=== PATIENT | female | born 1995 | race African-American/Black ===

== ENCOUNTER 2018-06-12 10:14 | Inpatient (IN) ==
[2018-06-12 11:25] LABS: Apearance,Urine Slightly Hazy (Clear); Bilirubin,Urine Negative (Negative); Blood, Urine Negative (Negative); Glucose,Urine (UA) Negative (Negative); Ketones,Urine 80 mg/dL (Negative); Mucus,Urine Moderate /LPF (Occasional); Nitrite,Urine Negative (Negative); Protein,Urine 100 MG/DL; RBC,Urine 7 /HPF (0-4); Urine Color Yellow (Yellow); Urine Specific Gravity 1.028 (1.001-1.035); WBC,Urine 100 /HPF (0-6)
[2018-06-12] MEDS ORDERED: MEPERIDINE 50 MG/1 ML VIAL IV PRN (12:59)
[2018-06-12] MEDS ORDERED: ONDANSETRON 4 MG/2 ML VIAL IV PRN (12:59)
[2018-06-12] MEDS: LACTATED RINGERS 1,000 ML IV SCH (13:47)
[2018-06-12] MEDS ORDERED: BUTORPHANOL 2 MG/ML VIAL IV PRN (16:55)
[2018-06-12] MEDS ORDERED: LACTATED RINGERS 250 ML IV ONE (16:55)
[2018-06-12] MEDS ORDERED: OXYTOCIN/LR 20 UNIT/1,000 ML BAG IV SCH (17:00)
[2018-06-12] MEDS ORDERED: CITRIC ACID/SODIUM CITRATE 30 ML UDCUP PO ONE (17:09)
[2018-06-12] MEDS ORDERED: FAMOTIDINE 20 MG/2 ML VIAL IV ONE (17:09)
[2018-06-12] MEDS ORDERED: LACTATED RINGERS 1,000 ML IV ONE (17:09)
[2018-06-12] MEDS ORDERED: hydrOXYzine HCL 25 MG/1 ML VIAL IM PRN (17:12)
[2018-06-12] MEDS ORDERED: ePHEDrine 50 MG/ML AMP IV PRN (17:12)
[2018-06-12] MEDS ORDERED: diphenhydrAMINE 50 MG/1 ML VIAL IV PRN ×2 (17:12)
[2018-06-12] MEDS ORDERED: NALOXONE 0.4 MG/ML VIAL IV PRN (17:12)
[2018-06-12] MEDS ORDERED: PROMETHAZINE 25 MG/1 ML VIAL IM ONE (17:12)
[2018-06-12 17:19] LABS: Basophils % 0.1 % (0.0-0.8); Hematocrit 40.3 VOL% (35.7-47.0); Hemoglobin 12.9 GM/DL (12.0-16.0); Immature Granulocytes % 0.6 %; Immature Granulocytes Absolute 0.06 #; Lymphocytes # 1.4 10*3/uL (1.4-4.0); Lymphocytes % 13.3 % (21.3-54.2); Mean Corpuscular Hemoglobin 26 PG (27-34); Mean Corpuscular Volume 80.8 FL (87-102); Mean Platelet Volume 12.5 FL (9.6-12.0); Monocytes # 0.5 10*3/uL (0.11-0.8); Monocytes % 5.2 % (1.7-12.7); Neutrophils # 8.5 10*3/uL (1.4-7.4); Neutrophils % 80.8 % (38.7-73.9); Platelet Count 197 T/CUMM (130-400); Red Blood Count 4.99 MC/CUMM (3.8-5.5); Red Cell Distribution Width 15.1 % (9.3-17.3); White Blood Count 10.5 T/CUMM (4-12)
[2018-06-12 17:48] LABS: Albumin 2.6 G/DL (3.4-5.0); Bilirubin,Total 0.4 MG/DL (0.2-1.0); Osmolality,Calculated 277.4 MOS/KG (273-304); Potassium 3.8 MMOL/L (3.5-5.1); Total Protein 7.2 G/DL (6.4-8.3)
[2018-06-13] MEDS ORDERED: OXYTOCIN/LR 30 UNIT/1,000 ML BAG IV ONE (00:11)
[2018-06-13 03:56] LABS: Cord Arterial Blood HCO3 14.4 MMOL/L
[2018-06-13 03:58] LABS: Cord Venous Blood HCO3 15.8 MMOL/L; Cord Venous Blood PCO2 67.3 MMHG; Cord Venous Blood PO2 13.9
[2018-06-13] MEDS ORDERED: BENZOCAINE 20%/MENTHOL 0.5% SPRAY 56 GM CAN TOP PRN ×2 (04:57→06:16)
[2018-06-13] MEDS ORDERED: IBUPROFEN 800 MG TABLET PO PRN (04:59)
[2018-06-13] MEDS ORDERED: ONDANSETRON 4 MG/2 ML VIAL IV PRN (06:16)
[2018-06-13] MEDS ORDERED: ACETAMINOPHEN 325 MG TABLET PO PRN (06:16)
[2018-06-13] MEDS ORDERED: MEASLES/MUMPS/RUBELLA VACCINE 0.5 ML VIAL SUBCUT ONE (06:16)
[2018-06-13] MEDS ORDERED: LANOLIN 50% CREAM 0.3 OZ TUBE TOP PRN (06:16)
[2018-06-13] MEDS ORDERED: BISACODYL 10 MG SUPP RECTAL PRN (06:16)
[2018-06-13] MEDS ORDERED: RHO(D) IMMUNE GLOBULIN 300 MCG SYRINGE IM ONE (06:16)
[2018-06-13] MEDS ORDERED: oxyCODONE/ACETAMINOPHEN 5-325 MG TABLET PO PRN (06:16)
[2018-06-13] MEDS ORDERED: OXYTOCIN/LR 20 UNIT/1,000 ML BAG IV ONE (06:16)
[2018-06-13] MEDS ORDERED: WITCH HAZEL PADS 100/JAR TOP PRN (06:16)
[2018-06-13] MEDS ORDERED: DIPH/TET/ACEL PERT BOOSTER VACCINE 0.5 ML VIAL IM ONE (06:16)
[2018-06-13] MEDS ORDERED: HYDROCORTISONE 2.5% RECTAL CREAM 30 GM TUBE TOP PRN (06:16)
[2018-06-13] MEDS: DOCUSATE SODIUM 100 MG CAPSULE PO SCH ×2 (09:41→20:41)
[2018-06-13] MEDS: IBUPROFEN 800 MG TABLET PO PRN (15:52)
[2018-06-13] MEDS: fentaNYL 2 MCG/ROPIV 0.2% EPID 100 ML EPIDURAL SCH (20:19)
[2018-06-13] MEDS: LACTATED RINGERS 1,000 ML IV SCH (20:20)
[2018-06-14] MEDS: IBUPROFEN 800 MG TABLET PO PRN ×2 (01:03→11:30)
[2018-06-14] MEDS: oxyCODONE/ACETAMINOPHEN 5-325 MG TABLET PO PRN (01:04)
[2018-06-14 04:21] LABS: Basophils % 0.2 % (0.0-0.8); Eosinophils # 0.1 10*3/uL (0.0-0.87); Eosinophils % 1.1 % (0.00-10.9); Hematocrit 28.7 VOL% (35.7-47.0); Hemoglobin 9.5 GM/DL (12.0-16.0); Immature Granulocytes % 0.5 %; Immature Granulocytes Absolute 0.05 #; Lymphocytes # 2.4 10*3/uL (1.4-4.0); Lymphocytes % 23.4 % (21.3-54.2); Mean Corpuscular HGB Conc 33.1 GM/DL (32-36); Mean Corpuscular Hemoglobin 26 PG (27-34); Mean Corpuscular Volume 79.3 FL (87-102); Mean Platelet Volume 12.7 FL (9.6-12.0); Monocytes # 0.8 10*3/uL (0.11-0.8); Neutrophils # 6.7 10*3/uL (1.4-7.4); Neutrophils % 66.8 % (38.7-73.9); Platelet Count 139 T/CUMM (130-400); Red Blood Count 3.62 MC/CUMM (3.8-5.5); Red Cell Distribution Width 15.1 % (9.3-17.3)
[2018-06-14] MEDS: DOCUSATE SODIUM 100 MG CAPSULE PO SCH ×2 (09:26→20:04)
[2018-06-15] MEDS: oxyCODONE/ACETAMINOPHEN 5-325 MG TABLET PO PRN ×2 (00:02→06:35)
[2018-06-15] MEDS ORDERED: MAGNESIUM HYDROXIDE SUSP 30 ML UDCUP PO PRN (09:28)
[2018-06-15] MEDS: DOCUSATE SODIUM 100 MG CAPSULE PO SCH (09:50)
[2018-06-15] MEDS ORDERED: diphenhydrAMINE 50 MG/1 ML VIAL IM ONE (10:03)
[2018-06-15] MEDS ORDERED: ACETAMINOPHEN/CODEINE 300-30 MG TABLET PO PRN (11:44)
[2018-06-15 14:36] VITALS: BP 150/88
== END 2018-06-15 15:30 | disposition home or self-care (01) | DRG 560 ==
LOC: N.LDOUT 10:14 → N.LD 10:16 → N.OB 06-13 07:15
PROVIDERS: ADMIT Obstetrics & Gynecology; ATTEND Obstetrics & Gynecology

== ENCOUNTER 2020-07-30 23:37 | Inpatient (IN) ==
[2020-07-31] MEDS ORDERED: MEPERIDINE 50 MG/1 ML VIAL IV PRN (00:22)
[2020-07-31] MEDS ORDERED: ONDANSETRON 4 MG/2 ML VIAL IV PRN (00:22)
[2020-07-31] MEDS ORDERED: LACTATED RINGERS 1,000 ML IV SCH (00:30)
[2020-07-31] MEDS ORDERED: miSOPROStoL 100 MCG TABLET VAG ONE (01:00)
[2020-07-31 01:14] LABS: Basophils % 0.1 % (0.0-0.8); Eosinophils % 0.5 % (0.00-10.9); Hematocrit 36.5 VOL% (35.7-47.0); Hemoglobin 11.2 GM/DL (12.0-16.0); Immature Granulocytes % 0.6 %; Immature Granulocytes Absolute 0.05 #; Lymphocytes % 23.9 % (21.3-54.2); Mean Corpuscular HGB Conc 30.7 GM/DL (32-36); Mean Corpuscular Volume 75.4 FL (87-102); Mean Platelet Volume 12.1 FL (9.6-12.0); Monocytes % 7.6 % (1.7-12.7); NRBC # 0.06 10*3/uL; Neutrophils % 67.3 % (38.7-73.9); Platelet Count 208 T/CUMM (130-400); Red Blood Count 4.84 MC/CUMM (3.8-5.5); Red Cell Distribution Width 19.5 % (9.3-17.3); White Blood Count 8.5 T/CUMM (4-12)
[2020-07-31 01:29] LABS: Albumin 2.2 G/DL (3.4-5.0); Bilirubin,Total 0.4 MG/DL (0.2-1.0); Calcium 8.8 MG/DL (8.5-10.1); Osmolality,Calculated 273.5 MOS/KG (273-304); Total Protein 6.7 G/DL (6.4-8.3)
[2020-07-31] MEDS ORDERED: miSOPROStoL 100 MCG TABLET VAG SCH (09:02)
[2020-07-31] MEDS ORDERED: FAMOTIDINE 20 MG/2 ML VIAL IV ONE (09:15)
[2020-07-31] MEDS ORDERED: CITRIC ACID/SODIUM CITRATE 30 ML UDCUP PO ONE (09:15)
[2020-07-31] MEDS ORDERED: LACTATED RINGERS 1,000 ML IV ONE (09:15)
[2020-07-31] MEDS ORDERED: ePHEDrine 50 MG/ML VIAL IV PRN (09:15)
[2020-07-31] MEDS ORDERED: hydrOXYzine HCL 25 MG/1 ML VIAL IM PRN (09:16)
[2020-07-31] MEDS ORDERED: diphenhydrAMINE 50 MG/1 ML VIAL IV PRN ×2 (09:16)
[2020-07-31] MEDS ORDERED: PROMETHAZINE 25 MG/1 ML VIAL IM ONE (09:16)
[2020-07-31] MEDS ORDERED: NALOXONE 0.4 MG/ML VIAL IV PRN (09:16)
[2020-07-31] MEDS ORDERED: fentaNYL 2 MCG/ROPIV 0.2% EPID 100 ML EPIDURAL SCH (09:30)
[2020-07-31] MEDS ORDERED: OXYTOCIN/LR 20 UNIT/1,000 ML BAG IV SCH (10:00)
[2020-07-31] MEDS ORDERED: miSOPROStoL 200 MCG TABLET ONE (12:01)
[2020-07-31] MEDS ORDERED: CARBOPROST TROMETHAMINE 250 MCG/ML AMP IM ONE (12:01)
[2020-07-31] MEDS ORDERED: METHYLERGONOVINE 0.2 MG/1 ML AMP ONE (12:01)
[2020-07-31 14:14] LABS: Cord Arterial Blood HCO3 15.9 MMOL/L
[2020-07-31 14:15] LABS: Cord Venous Blood HCO3 18.1 MMOL/L; Cord Venous Blood PCO2 52.7 MMHG; Cord Venous Blood PO2 22.4
[2020-07-31] MEDS ORDERED: WITCH HAZEL PADS 100/JAR TOP PRN ×2 (15:43→17:58)
[2020-07-31] MEDS ORDERED: RHO(D) IMMUNE GLOBULIN 300 MCG SYRINGE IM ONE ×2 (15:43→17:58)
[2020-07-31] MEDS ORDERED: OXYTOCIN/LR 20 UNIT/1,000 ML BAG IV ONE ×2 (15:43→17:58)
[2020-07-31] MEDS ORDERED: BENZOCAINE 20%/MENTHOL 0.5% SPRAY 56 GM CAN TOP PRN ×2 (15:43→17:58)
[2020-07-31] MEDS ORDERED: HYDROCORTISONE 2.5% RECTAL CREAM 30 GM TUBE TOP PRN ×2 (15:43→17:58)
[2020-07-31] MEDS ORDERED: LANOLIN 50% CREAM 0.3 OZ TUBE TOP PRN ×2 (15:43→17:58)
[2020-07-31] MEDS ORDERED: DIPH/TET/ACEL PERT BOOSTER VACCINE 0.5 ML VIAL IM ONE (15:43)
[2020-07-31] MEDS ORDERED: IBUPROFEN 800 MG TABLET PO PRN (15:43)
[2020-07-31] MEDS ORDERED: MEASLES/MUMPS/RUBELLA VACCINE 0.5 ML VIAL SUBCUT ONE (15:43)
[2020-07-31] MEDS ORDERED: ACETAMINOPHEN 325 MG TABLET PO PRN ×2 (15:43→17:58)
[2020-07-31] MEDS ORDERED: BISACODYL 10 MG SUPP RECTAL PRN ×2 (15:43→17:58)
[2020-07-31] MEDS ORDERED: ACETAMINOPHEN/CODEINE 300-30 MG TABLET PO ONE (16:03)
[2020-07-31] MEDS ORDERED: hydrALAZINE 25 MG TABLET PO ONE (17:10)
[2020-07-31] MEDS ORDERED: ACETAMINOPHEN/CODEINE 300-30 MG TABLET PO PRN ×2 (17:58→20:20)
[2020-07-31] MEDS ORDERED: oxyCODONE/ACETAMINOPHEN 5-325 MG TABLET PO PRN ×2 (17:58)
[2020-07-31] MEDS: IBUPROFEN 800 MG TABLET PO PRN (20:21)
[2020-07-31] MEDS: ACETAMINOPHEN/CODEINE 300-30 MG TABLET PO PRN (20:21)
[2020-07-31] MEDS: DOCUSATE SODIUM 100 MG CAPSULE PO SCH (20:21)
[2020-07-31] MEDS ORDERED: DOCUSATE SODIUM 100 MG CAPSULE PO SCH (21:00)
[2020-08-01 06:22] LABS: Basophils % 0.3 % (0.0-0.8); Eosinophils # 0.1 10*3/uL (0.0-0.87); Eosinophils % 0.7 % (0.00-10.9); Hematocrit 31.6 VOL% (35.7-47.0); Hemoglobin 9.7 GM/DL (12.0-16.0); Immature Granulocytes % 0.6 %; Immature Granulocytes Absolute 0.06 #; Lymphocytes # 2.7 10*3/uL (1.4-4.0); Lymphocytes % 25.3 % (21.3-54.2); Mean Corpuscular HGB Conc 30.7 GM/DL (32-36); Mean Corpuscular Volume 76.1 FL (87-102); Mean Platelet Volume 12.2 FL (9.6-12.0); Monocytes % 7.3 % (1.7-12.7); NRBC # 0.03 10*3/uL; Neutrophils % 65.8 % (38.7-73.9); Red Blood Count 4.15 MC/CUMM (3.8-5.5); Red Cell Distribution Width 19.5 % (9.3-17.3); White Blood Count 10.5 T/CUMM (4-12)
[2020-08-01 06:27] LABS: Platelet Count 163 T/CUMM (130-400)
[2020-08-01 06:44] LABS: Hypochromasia 1+; Microcytosis 1+; Platelet Estimate Adequate
[2020-08-01] MEDS: DOCUSATE SODIUM 100 MG CAPSULE PO SCH ×2 (09:28→20:00)
[2020-08-01] MEDS: FERROUS SULFATE 325 MG TABLET PO SCH (09:40)
[2020-08-01] MEDS: IBUPROFEN 800 MG TABLET PO PRN (23:10)
[2020-08-02] MEDS: ACETAMINOPHEN/CODEINE 300-30 MG TABLET PO PRN (06:09)
[2020-08-02 07:54] VITALS: BP 117/58
[2020-08-02] MEDS: FERROUS SULFATE 325 MG TABLET PO SCH (08:41)
[2020-08-02] MEDS: DOCUSATE SODIUM 100 MG CAPSULE PO SCH (08:41)
== END 2020-08-02 15:30 | disposition home or self-care (01) | DRG 560 ==
LOC: N.LDOUT 23:37 → N.LD 23:43 → N.OB 07-31 17:43
PROVIDERS: ADMIT Obstetrics & Gynecology; ATTEND Obstetrics & Gynecology